=== PATIENT | female | born 1940 | race Caucasian/White ===

== ENCOUNTER 2016-08-07 11:12 | Inpatient (IN) | payer MEDICARE ==
[~2016-08-07] VITALS: Ht 149.9 cm; Wt 54.3 kg
[2016-08-07] MEDS ORDERED: CEFTRIAXONE 1 GM VIAL ONE (14:47)
[2016-08-07] MEDS ORDERED: SODIUM CHLORIDE 0.9% 100 ML IV ONE (14:47)
[2016-08-07] MEDS ORDERED: PHARMACY TO DOSE LEVAQUIN IV SCH (15:45)
[2016-08-07] MEDS: SOD CHLOR 0.9% 1000 ML IV SCH (16:35)
[2016-08-07 17:11] VITALS: Ht 149.9 cm; Wt 54.3 kg
[2016-08-07 17:12] VITALS: BP_SYST 130; BP_SYST 140; RESP 18; TEMP 97.7
[2016-08-07] MEDS ORDERED: LEVOFLOXACIN 750 MG/150 ML 150 ML IV SCH (17:48)
[2016-08-07 19:18] VITALS: BP_SYST 137; RESP 18; TEMP 97.9
[2016-08-07] MEDS ORDERED: DEXTROSE 50% SYRINGE 50 ML IV PRN (20:05)
[2016-08-07] MEDS ORDERED: GLUCAGON 1 MG VIAL IM PRN (20:05)
[2016-08-07] MEDS ORDERED: QUEtiapine 25 MG TAB PO SCH (23:00)
[2016-08-07] MEDS: ACETAMINOPHEN 325 MG TAB PO PRN (23:30)
[2016-08-08 04:34] VITALS: BP_SYST 132; RESP 20; TEMP 98.3
[2016-08-08] MEDS: SOD CHLOR 0.9% 1000 ML IV SCH (06:07)
[2016-08-08 07:41] VITALS: BP_SYST 125; RESP 18; TEMP 97.5
[2016-08-08] MEDS ORDERED: Meropenem 500 MG in SODIUM CHLORIDE 0.9% 100 ML IV SCH (08:00)
[2016-08-08] MEDS: ACETAMINOPHEN 325 MG TAB PO PRN ×3 (09:07→17:32)
[2016-08-08 12:58] VITALS: BP_SYST 122; RESP 20; TEMP 97.4
[2016-08-08 15:33] VITALS: BP_SYST 144; RESP 18; TEMP 97.6
[2016-08-08] MEDS: ASPIRIN 81 MG CHEW TAB PO SCH (17:31)
[2016-08-08 19:18] VITALS: BP_SYST 143; RESP 20; TEMP 97.9
[2016-08-08] MEDS: QUEtiapine 25 MG TAB PO SCH (20:17)
[2016-08-08 22:45] VITALS: BP_SYST 135; RESP 20; TEMP 98.3
[2016-08-09 02:26] VITALS: BP_SYST 160; TEMP 97.8
[2016-08-09] MEDS: SOD CHLOR 0.9% 1000 ML IV SCH (05:25)
[2016-08-09] MEDS: ACETAMINOPHEN 325 MG TAB PO PRN ×2 (05:25→12:29)
[2016-08-09 07:37] VITALS: BP_SYST 142; RESP 16; TEMP 97.5
[2016-08-09] MEDS: ASPIRIN 81 MG CHEW TAB PO SCH (08:25)
[2016-08-09 10:51] VITALS: BP_SYST 151; RESP 16; TEMP 97.3
[2016-08-09] MEDS: TRIAMCIN 0.1% CR 454 GM TOPICAL SCH ×2 (12:50→21:19)
[2016-08-09] MEDS ORDERED: DIAZEPAM 5 MG TAB PO ONE (14:05)
[2016-08-09 16:24] VITALS: BP_SYST 144; RESP 16; TEMP 97.5
[2016-08-09] MEDS: LOSARTAN/HCTZ 50/12.5 MG TAB PO SCH (18:07)
[2016-08-09 19:16] VITALS: BP_SYST 155; RESP 16; TEMP 98
[2016-08-09] MEDS: QUEtiapine 25 MG TAB PO SCH (21:00)
[2016-08-09] MEDS: PRAVASTATIN 40 MG TAB PO SCH (21:19)
[2016-08-09 23:25] VITALS: BP_SYST 145; RESP 16; TEMP 98.7
[2016-08-10] MEDS: ACETAMINOPHEN 325 MG TAB PO PRN ×2 (02:24→06:39)
[2016-08-10 03:49] VITALS: BP_SYST 95; RESP 16; TEMP 98.6
[2016-08-10 08:09] VITALS: BP_SYST 149; RESP 16; TEMP 97.7
[2016-08-10] MEDS: ASPIRIN 81 MG CHEW TAB PO SCH (09:09)
[2016-08-10] MEDS: LOSARTAN/HCTZ 50/12.5 MG TAB PO SCH (09:09)
[2016-08-10] MEDS: TRIAMCIN 0.1% CR 454 GM TOPICAL SCH ×2 (09:10→20:13)
[2016-08-10 11:19] VITALS: BP_SYST 127; RESP 16; TEMP 97.5
[2016-08-10 15:06] VITALS: BP_SYST 152; RESP 16; TEMP 97.8
[2016-08-10] MEDS ORDERED: DIAZEPAM 5 MG TAB PO ONE (20:00)
[2016-08-10 20:09] VITALS: BP_SYST 166; TEMP 98.4
[2016-08-10] MEDS: QUEtiapine 25 MG TAB PO SCH (20:14)
[2016-08-10] MEDS: PRAVASTATIN 40 MG TAB PO SCH (20:18)
[2016-08-11] VITALS (7 sets, daily range): BP systolic 124–158; RESP 16–18; TEMP 97.5–98.6
[2016-08-11] MEDS: TRIAMCIN 0.1% CR 454 GM TOPICAL SCH (08:05)
[2016-08-11] MEDS ORDERED: FERROUS GLUC 324 MG TAB PO SCH (09:00)
[2016-08-11] MEDS ORDERED: SALINE FLUSH 10 ML FLUSH PRN (09:25)
[2016-08-11] MEDS: LOSARTAN/HCTZ 50/12.5 MG TAB PO SCH (09:27)
[2016-08-11] MEDS: ASPIRIN 81 MG CHEW TAB PO SCH (09:27)
[2016-08-11] MEDS ORDERED: GLIMEPIRIDE 1 MG TAB PO SCH (11:15)
[2016-08-11] MEDS ORDERED: SALINE FLUSH 10 ML FLUSH SCH (20:00)
== END 2016-08-11 17:32 | disposition home or self-care (01) | DRG 312 ==
LOC: ENRESERVDT → ENRESERVTM → ER 11:12 → EMR 15:24 → ENPENDDIS 15:24 → 4NT 16:22
PROVIDERS: ADMIT Internal Medicine; ATTEND Internal Medicine
DX: R55 Syncope and collapse (principal); E11.22 Type 2 diabetes mellitus with diabetic chronic kidney disease; I48.0 Paroxysmal atrial fibrillation; I25.10 Atherosclerotic heart disease of native coronary artery without angina pectoris; Z86.73 Personal history of transient ischemic attack (TIA), and cerebral infarction without residual deficits; N18.9 Chronic kidney disease, unspecified; L30.9 Dermatitis, unspecified; D50.9 Iron deficiency anemia, unspecified; Z95.5 Presence of coronary angioplasty implant and graft; I12.9 Hypertensive chronic kidney disease with stage 1 through stage 4 chronic kidney disease, or unspecified chronic kidney disease; E78.5 Hyperlipidemia, unspecified; Z79.82 Long term (current) use of aspirin; Z79.84 Long term (current) use of oral hypoglycemic drugs; I25.2 Old myocardial infarction
CPT/HCPCS: 70450; 70551; 71010; 80053; 80307; 81001; 82274; 82550; 82553; 82947; 83540; 83605; 83735; 84439; 84443; 84466; 84484; 85025; 87040; 87088; 93005; 93306; 93880; 96365; 99222; 99233